=== PATIENT | female | born 1970 | race Caucasian/White ===

== ENCOUNTER 2020-05-08 20:03 | Emergency (ER) | payer MEDICAID ==
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
[2020-05-08 22:17] LABS: BASOPHILS % (AUTO) 0.7 %; EOSINOPHILS # (AUTO) 0.2 10^3/uL (0.0-0.7); EOSINOPHILS % (AUTO) 2.9 %; HGB - HEMOGLOBIN 12.8 g/dL (12.0-16.0); LYMPHOCYTES # (AUTO) 2.2 10^3/uL (1.5-3.5); LYMPHOCYTES % (AUTO) 36.6 %; MEAN CORPUSCULAR HEMOGLOBIN 29.6 pg (27.0-31.0); MEAN CORPUSCULAR HGB CONC 32.2 g/dL (32.0-36.0); MEAN CORPUSCULAR VOLUME 92.1 fL (81.0-99.0); MEAN PLATELET VOLUME 9.9 fL (7.9-10.8); MONOCYTES # (AUTO) 0.6 10^3/uL (0.0-1.0); MONOCYTES % (AUTO) 9.9 %; NEUTROPHILS # (AUTO) 2.9 10^3/uL (1.5-6.6); NEUTROPHILS % (AUTO) 49.6 %; PLT - PLATELET COUNT 296 10^3/uL (130-450); RED BLOOD COUNT 4.32 10^6/uL (4.20-5.40); RED CELL DISTRIBUTION WIDTH 12.3 % (12.0-15.0); WHITE BLOOD COUNT 5.9 x10^3/uL (4.8-10.8)
[2020-05-08 22:27] LABS: CALCIUM 9.2 mg/dL (8.5-10.3); CREATININE 0.7 mg/dL (0.4-1.0)
[2020-05-08 23:51] LABS: BILIRUBIN,URINE NEGATIVE (NEGATIVE); GLUCOSE, URINE (UA) NEGATIVE (NEGATIVE); KETONES,URINE (UA) NEGATIVE (NEGATIVE); LEUKOCYTE ESTERASE, URINE NEGATIVE (NEGATIVE); MUDS CUTOFF CONCENTRATIONS CUTOFF CONC BELOW:; NITRITE,URINE NEGATIVE (NEGATIVE); OCCULT BLOOD,URINE NEGATIVE (NEGATIVE); PROTEIN,URINE NEGATIVE (NEGATIVE); UROBILINOGEN,URINE 1 (NORMAL) E.U./dL (NORMAL)
[2020-05-08 23:53] LABS: CLARITY,URINE CLEAR (CLEAR); HCG UR QUAL NEGATIVE
[2020-05-09 00:02] LABS: AMPHETAMINE SCREEN,URINE POSITIVE (NEGATIVE); BENZODIAZEPINES SCREEN, URINE NEGATIVE (NEGATIVE); COCAINE SCREEN URINE NEGATIVE (NEGATIVE); METHADONE SCREEN, URINE NEGATIVE (NEGATIVE); METHAMPHETAMINES SCREEN, URINE POSITIVE (NEGATIVE); OPIATE SCREEN, URINE NEGATIVE (NEGATIVE); OXYCODONE SCREEN, URINE NEGATIVE (NEGATIVE); PROPOXYPHENE SCREEN, URINE NEGATIVE (NEGATIVE); TRICYCLIC ANTIDEPRESSANT,URINE NEGATIVE (NEGATIVE)
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
[2020-05-09] MEDS ORDERED: ACETAMINOPHEN 325 MG TABLET PO STA (07:25)
--- NOTE | 2020-05-09 08:21 | CT Report ---
PROCEDURE: HEAD WO INDICATIONS: GOMEZ, AMS, visual changes TECHNIQUE: Noncontrast 4.5 mm thick angled axial sections acquired from the foramen magnum to the vertex. For r adiation dose reduction, the following was used: automated exposure control, adjustment of mA and/or kV according to patient size. COMPARISON: 03/07/2014 FINDINGS: Image quality: Excellent. CSF spaces: Basal cisterns are patent. No extra-axial fluid collections. Ventricles are normal in size and shape. Brain: No midline shift. No intracranial masses or hemorrhage. Partida-white matter interface is norm al. Skull and face: Calvarium and visualized facial bones are intact, without suspicious lesions. Sinuses: Visualized sinuses and mastoids are clear. IMPRESSION: 1. No CT evidence of acute intracranial process. 2. No fractures. 3. The visible portions of the upper orbits are normal. 4. Concordant with preliminary report. Reviewed by: Peace Perez MD on 05/09/2020 8:20 AM PST Approved by: Peace Perez MD on 05/09/2020 8:20 AM PST Station ID: [id number]
[2020-05-09 10:51] LABS: C. PNEUMONIAE- RESP PCR PANEL NOT DETECTED
--- NOTE | 2020-05-09 13:14 | ED Physician Documentation ---
ED Addendum - Addendum Addendum: 05/09/20 13:13 Patient signed out to me by Dr. Bailey. She is accepted to [facility] for voluntary psychiatric care. Dr. Martin accepts. COBRA forms completed. Departure - Departure Disposition: 65 Psych Hosp/Unit DC/Xfer Clinical Impression: Unspecified psychosis Qualifiers: Psychosis type: unspecified psychosis type Qualified Code(s): F29 - Unspecified psychosis not due to a substance or known physiological condition Condition: Stable
[2020-05-09 14:05] VITALS: BP 102/67
== END 2020-05-09 15:53 | disposition left against medical advice (07) ==
LOC: ED 20:03
DX: F29 Unspecified psychosis not due to a substance or known physiological condition (principal); F17.200 Nicotine dependence, unspecified, uncomplicated
CPT/HCPCS: 0202U; 36415; 70450; 80048; 80306; 81003; 81025; 85025; 99284; A9270; 81001; 87086

== ENCOUNTER 2020-05-30 04:42 | Outpatient (CLI) | payer MEDICAID | END 2020-05-30 04:43 | disposition critical access hospital (66) | LOC: EMS 04:42 | PROVIDERS: ATTEND Surgery | DX: R51.9 Headache, unspecified (principal); R41.0 Disorientation, unspecified; R42 Dizziness and giddiness | CPT/HCPCS: A0425; A0429; A0999 ==

== ENCOUNTER 2020-05-30 05:03 | Emergency (ER) | payer OTHER, MEDICAID ==
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
[2020-05-30 06:18] VITALS: BP 126/80
--- NOTE | 2020-05-30 07:40 | CT Report ---
PROCEDURE: HEAD WO INDICATIONS: headache, history of head trauma TECHNIQUE: Noncontrast 4.5 mm thick angled axial sections acquired from the foramen magnum to the vertex. For r adiation dose reduction, the following was used: automated exposure control, adjustment of mA and/or kV according to patient size. COMPARISON: CT head without contrast, 05/08/2020. FINDINGS: Image quality: Excellent. CSF spaces: Basal cisterns are patent. No extra-axial fluid collections. Ventricles are normal in size and shape. Brain: No midline shift. No intracranial masses or hemorrhage. Partida-white matter interface is norm al. Skull and face: Calvarium and visualized facial bones are intact, without suspicious lesions. Sinuses: Visualized sinuses and mastoids are clear. IMPRESSION: No acute intracranial abnormality. Reviewed by: Bharathi Downing MD on 05/30/2020 7:38 AM PST Approved by: Bharathi Downing MD on 05/30/2020 7:38 AM PST Station ID: [id number]
== END 2020-05-30 06:16 | disposition home or self-care (01) ==
LOC: EDUNIT# → ED 05:03
DX: F15.10 Other stimulant abuse, uncomplicated (principal); R51.9 Headache, unspecified; Z87.820 Personal history of traumatic brain injury; F17.200 Nicotine dependence, unspecified, uncomplicated; Z59.0 Homelessness
CPT/HCPCS: 70450; 99284

== ENCOUNTER 2020-06-15 11:34 | Emergency (ER) | payer OTHER, MEDICAID ==
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
--- NOTE | 2020-06-15 13:12 | CT Report ---
PROCEDURE: HEAD WO INDICATIONS: head inj TECHNIQUE: Noncontrast 4.5 mm thick angled axial sections acquired from the foramen magnum to the vertex. For r adiation dose reduction, the following was used: automated exposure control, adjustment of mA and/or kV according to patient size. COMPARISON: Head CT 05/30/2020, 05/08/2020, 03/07/2014.. FINDINGS: Image quality: Excellent. CSF spaces: Basal cisterns are patent. No extra-axial fluid collections. Ventricles are normal in size and shape. Brain: No midline shift. No intracranial masses or hemorrhage. Early onset senile basal ganglia marjan cifications, unchanged. Partida-white matter interface is normal. Skull and face: Calvarium and visualized facial bones are intact, without suspicious lesions. Small calcification in the right temporal inner table is unchanged but slightly more pronounced compared to 2013. This could represent exostosis or possibly calcified meningioma. Sinuses: Visualized sinuses and mastoids are clear. IMPRESSION: No acute intracranial abnormality. No fracture. Reviewed by: Sanjiv Vu MD on 06/15/2020 12:10 PM [facility] Approved by: Sanjiv Vu MD on 06/15/2020 12:10 PM [facility] Station ID: [id number]
[2020-06-15 13:52] VITALS: BP 133/70
== END 2020-06-15 13:58 | disposition home or self-care (01) ==
LOC: ED 11:34
DX: S06.0X0A Concussion without loss of consciousness, initial encounter (principal); W17.89XA Other fall from one level to another, initial encounter; Y93.89 Activity, other specified; Y99.0 Civilian activity done for income or pay; F17.200 Nicotine dependence, unspecified, uncomplicated
CPT/HCPCS: 70450; 99284

== ENCOUNTER 2020-12-05 14:54 | Outpatient (CLI) | payer OTHER ==
--- NOTE | 2020-12-06 09:35 | XRAY Report ---
PROCEDURE: Cervical Spine 2 View INDICATIONS: NECK DISORDER TECHNIQUE: 3 view(s) of the cervical spine were acquired. COMPARISON: None. FINDINGS: Bones: No fractures or dislocations to the C7-T1 level. Grade 1 anterolisthesis at C3-4 and C4-5 lev els are seen. Degenerative endplate changes are noted at C4-5, C5-6, C6-7 and C7-T1 levels. The later al masses of C1 appear intact on the odontoid view. No suspicious bony lesions. Soft tissues: No prevertebral soft tissue swelling. IMPRESSION: Degenerative disc disease throughout mid to lower cervical spine with grade 1 anterolist hesis at C3-4 and C4-5 levels. No acute fracture or dislocation. Reviewed by: Krishna Chu MD on 12/06/2020 9:34 AM PDT Approved by: Krishna Chu MD on 12/06/2020 9:34 AM PDT Station ID: [id number]
== END 2020-12-05 14:55 | disposition home or self-care (01) ==
LOC: DI.N 14:54
PROVIDERS: ATTEND Registered Nurse
DX: M43.12 Spondylolisthesis, cervical region (principal); M50.321 Other cervical disc degeneration at C4-C5 level